=== PATIENT | female | born 1990 | race Hispanic/Latino ===

== ENCOUNTER 2021-06-22 17:24 | Emergency (ER) | payer OTHER, SELFPAY ==
[2021-06-22 18:56] VITALS: BP 143/93; PULSE 98; RESP 20; TEMP 36.8; O2SAT 100; BMI 33.5
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
[2021-06-22 21:06] VITALS: BP 132/92; PULSE 87; RESP 16; O2SAT 100
[2021-06-22] MEDS: CYCLOBENZAPRINE 10 MG PREPACK 1 BOTTLE MISC (21:16)
[2021-06-22] MEDS: KETOROLAC 30 MG/ML VIAL IM (21:16)
== END 2021-06-22 21:28 | disposition home or self-care (01) ==
PROVIDERS: Emergency Provider Emergency Medicine
DX: S00.83XA Contusion of other part of head, initial encounter (principal); S43.402A Unspecified sprain of left shoulder joint, initial encounter; S20.212A Contusion of left front wall of thorax, initial encounter; V89.2XXA Person injured in unspecified motor-vehicle accident, traffic, initial encounter
CPT/HCPCS: 70450; 71045; 72125; 72170; 96372; 99283; 99284; J1885